=== PATIENT | male | born 1950 | race Caucasian/White ===

== ENCOUNTER → 2017-04-17 | Outpatient (CLI) | payer OTHER | END | disposition home or self-care (01) | LOC: C.LAB1850 09:40 | PROVIDERS: ATTEND Urology | DX: R97.20 Elevated prostate specific antigen [PSA] (principal) ==

== ENCOUNTER → 2017-12-15 | Outpatient (CLI) | payer OTHER | END | disposition home or self-care (01) | LOC: C.LAB1850 09:00 | PROVIDERS: ATTEND Physician Assistant | DX: R97.20 Elevated prostate specific antigen [PSA] (principal) ==

== ENCOUNTER 2025-09-03 15:12 | Observation (INO) ==
[2025-09-03 16:01] LABS: Hematocrit (blood only) 45.0 % (42.0-52.0); Hemoglobin 15.4 g/dl (14.0-18.0); Immature Granulocytes # (auto) 0.02 K/uL (0.01-0.20); Immature Granulocytes % (auto) 0.2 %; Mean Corpuscular Hemoglobin 31.2 pg (25.0-34.0); Mean Corpuscular Volume 91.1 fL (80.0-100.0); Platelet Count 141 K/uL (130-400); RDW Standard Deviation 44.8 fL (36.4-46.3); Red Blood Count 4.94 M/uL (4.70-6.10); White Blood Count 9.35 K/ul (4.8-10.8)
--- NOTE | 2025-09-03 16:14 | Electrocardiogram Report ---
Test Reason : Blood Pressure : */* mmHG Vent. Rate : 63 BPM Atrial Rate : * BPM P-R Int : * ms QRS Dur : 128 ms QT Int : 418 ms P-R-T Axes : * 29 7 degrees QTcB Int : 427 ms Wide QRS rhythm Right bundle branch block Abnormal ECG No previous ECGs available Confirmed by Bradly Holman ([id number]) on 09/03/2025 4:14:08 PM Referred By: Confirmed By: Bradly Holman
[2025-09-03 16:29] LABS: Alanine Aminotransferase 16.0 U/L (7-52); Albumin Globulin Ratio 1.6 (0.9-2); Albumin Level 4.1 gm/dl (3.4-5.0); Alkaline Phosphatase 64.0 U/L (34-104); Anion Gap 8.0 (3-11); Bilirubin,Total 0.8 mg/dl (0.2-1.0); Blood Urea Nitrogen 35.0 mg/dl (6-23); Calcium 9.4 mg/dl (8.6-10.3); Carbon Dioxide 24.0 mmol/L (21-32); Chloride 106.0 mmol/L (98-107); Creatinine Clr Calc Pharmacy 38.1 ml/min; Globulin 2.5 gm/dl (2.5-4.0); Glucose 119.0 mg/dl (70-99(Fasting)); Potassium 4.4 mmol/L (3.5-5.1); Sodium 138.0 mmol/L (136-145); Total Protein 6.6 gm/dl (6.0-8.3)
[2025-09-03 16:33] LABS: INR 1.2 (0.9-1.1); Partial Thromboplastin Time 25 Seconds (21-31); Prothrombin Time 12.4 Seconds (9.0-12.0)
--- NOTE | 2025-09-03 16:42 | XRay Report ---
Chest radiograph, one view History: Chest pain Comparison: None Findings: Single AP view of the chest performed. No focal consolidation or pleural effusion. No pneumothorax. The cardiomediastinal silhouette is within normal limits. Normal pulmonary vascularity. No evidence for lymphadenopathy. No visualized bony or soft tissue abnormality. Impression: Normal chest radiograph Electronically signed by Harmeet Winn 09-03-2025 4:41 PM
[2025-09-03] MEDS: SODIUM CHLORIDE 0.9% 1,000 ML IV ONE (16:49)
--- NOTE | 2025-09-03 17:14 | Emergency Department Note ---
History of Present Illness General Chief complaint: Dizziness Stated complaint: LIGHT HEADED Time Seen by Provider: 09/03/25 16:30 History of Present Illness Provider complaint: Lightheaded Maximum Pain Intensity: 1 74-year-old male presents emergency department after feeling lightheaded. Patient reports at 11 AM he was at the [employer] club at [facility] when he began to feel very sweaty and lightheaded. Patient states he felt like he was going to pass out. Patient states he did not lose consciousness. Patient reports no headache. He reports no chest pain or difficulty breathing. Patient reports that he did not eat anything this morning for breakfast. 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 Patient reports he went back to his luncheon and ate and felt much better. Patient reports he called his PCP who advised him to come to the emergency department for evaluation for TIA. Home Medications Medication Instructions Recorded Confirmed Type brimonidine 0.2 %-timolol 0.5 % 1 drops ophthalmic (eye) BID 01/08/20 09/03/25 History eye drops (Combigan) OneTouch Ultra Blue Test Strip #100 ea 08/04/20 02/21/25 Rx (blood sugar diagnostic) tadalafil 5 mg tablet 5 mg PO DAILY 02/19/24 09/03/25 History atorvastatin 20 mg tablet 20 mg PO QPM #90 tabs 02/21/25 09/03/25 Rx blood-glucose sensor (FreeStyle #6 ea 06/11/25 Rx Pat 3 Plus Sensor device) multivitamin 1 tab PO DAILY 09/03/25 09/03/25 History Allergies Allergy/AdvReac Type Severity Reaction Status Date / Time No Known Allergies Allergy Verified 09/03/25 19:29 Past Med/Surg History Problem List (Updated 09/03/25 @ 20:47 by William Su MD) TIA (transient ischemic attack) (Acute) ADDISON (acute kidney injury) (Acute) Dyslipidemia Diabetes type 1, controlled Elevated prostate specific antigen (PSA) (Acute) Pulmonary nodule Cough Abnormal CT scan of lung Social History Smoking Status: Never smoker Hx Substance Use: No Preferred Language: French marital status: Feels Safe at Home: Yes Physical Exam Vital Signs Vital Signs - 24 hr 09/03/25 15:17 09/03/25 16:59 09/03/25 17:20 Temperature 36.5 C Temperature Source Temporal Artery Scan Pulse Rate 66 63 61 Pulse Rate [Apical] Respiratory Rate 18 20 Respiratory Effort / Characteristics Non-Labored Spontaneous Respiratory Depth Normal Respiratory Pattern Regular Blood Pressure 134/81 Blood Pressure [Left Arm] Blood Pressure Mean 98 Blood Pressure Mean [Left Arm] Blood Pressure Position [Left Arm] Pulse Oximetry 97 99 Oxygen Delivery Method Room Air Room Air Sepsis Recent Fever Within 48 Hours No Sepsis New/Unexplained Change in Mental Status N/A Sepsis Action Taken by Nursing No Action Required 09/03/25 17:20 09/03/25 18:08 09/03/25 20:30 Temperature Temperature Source Pulse Rate Pulse Rate [Apical] 61 62 60 Respiratory Rate 20 20 16 Respiratory Effort / Characteristics Non-Labored Spontaneous Non-Labored Spontaneous Non-Labored Spontaneous Respiratory Depth Normal Normal Normal Respiratory Pattern Regular Regular Regular Blood Pressure Blood Pressure [Left Arm] 133/77 140/86 140/76 Blood Pressure Mean Blood Pressure Mean [Left Arm] 95 104 97 Blood Pressure Position [Left Arm] Semi-fowlers Pulse Oximetry 99 97 100 Oxygen Delivery Method Room Air Room Air Room Air Sepsis Recent Fever Within 48 Hours Sepsis New/Unexplained Change in Mental Status Sepsis Action Taken by Nursing Physical Exam GENERAL: He is oriented to person, place, and time. He appears well-developed and well-nourished. He does not appear distressed. HENT: Exam performed. - Head: Normocephalic and atraumatic. - Right Ear: External ear normal. No mastoid erythema - Left Ear: External ear normal. No mastoid erythema - Mouth/Throat: The oropharynx is clear and moist. No trismus in the jaw. No dental abscesses or uvula swelling. No oropharyngeal exudate or tonsillar abscesses. EYES: Conjunctivae and EOM are normal. Pupils are equal, round, and reactive to light. Right eye exhibits no discharge. Left eye exhibits no discharge. No scleral icterus. NECK: Normal range of motion. Neck supple. No JVD present. No rigidity. No tracheal deviation and normal range of motion present. CV: Normal rate, regular rhythm, normal heart sounds and intact distal pulses. There is no peripheral edema. Palpable radial pulses bue. PULM/CHEST: Effort normal and breath sounds normal. No respiratory distress. No stridor. He has no wheezes. He has no rales. ABD: The abdomen is soft. He has no distension. No mass is present. There is no tenderness. There is no rebound, no guarding. MUSC/SKEL: Normal range of motion. There is no peripheral edema, tenderness or deformity. LYMPH: No cervical adenopathy. NEURO: He is alert and oriented to person, place, and time. He has normal strength. No cranial nerve deficit or sensory deficit. Coordination and gait normal. GCS eye subscore is 4. GCS verbal subscore is 5. GCS motor subscore is 6. Cerebellar tests wnl. NIHSS: 0 SKIN: Skin is warm and dry. He is not diaphoretic. PSYCH: He has a normal mood and affect. Behavior is normal. Judgment and thought content normal. Course Course 163: The patient was evaluated in room B4. A complete history and physical exam was performed Cardiac monitoring: An order was placed for continuous cardiac monitoring. The monitor shows a rate of 60 with sinus arrhythmia interpreted by me Patient was seen during a time of extreme volume and extreme acuity in the emergency department. Nursing triage protocols were initiated and labs were drawn by protocol in the triage area. Labs showed creatinine 1.7. Baseline creatinine is around 1.1. Will obtain CT of the head without contrast and CT of the abdomen pelvis without contrast. 1915: Vital signs stable. On reassessment patient has no focal neurologic deficits no meningeal signs NIHSS: 0. Initially was thought to the patient's symptoms could be due to hypoglycemia since he had not eaten all day today however the patient reported that EMS stated that his blood sugar was not low when they saw him. Patient has a continuous glucose monitor on his phone which showed the patient had no episodes of hypoglycemia. Other differential could be TIA. Had a long discussion with the patient about this and after long discussion we jointly decided be more prudent to admit the patient for ADDISON and possible TIA for neurology evaluation in the morning. Patient be admitted to the [facility] team. Administered Medications Sodium Chloride (Nss) 1,000 mls @ 125 mls/hr IV .Q8H BRIAN Stop: 09/06/25 19:14 Last Admin: 09/03/25 19:29 Dose: 125 mls/hr Documented By: EMB Discontinued Medications Aspirin (Aspirin 81 Mg Chew) 324 mg PO NOW STA Stop: 09/03/25 19:16 Last Admin: 09/03/25 19:29 Dose: 324 mg Documented By: JOÃO Sodium Chloride (Nss) 1,000 mls @ 999 mls/hr IV .Q1H1M ONE Stop: 09/03/25 17:30 Last Infusion: 09/03/25 18:00 Dose: Infused Documented By: ludy Admin: 09/03/25 16:49 Dose: 999 mls/hr Documented By: ludy Medical Decision Making Laboratory Data Attestation: I reviewed the patient's lab results. 09/03/25 15:42 09/03/25 15:42 Lab Results 09/03/25 09/03/25 Range/Units 15:42 Unknown WBC 9.35 (4.8-10.8) K/ul RBC 4.94 (4.70-6.10) M/uL Hgb 15.4 (14.0-18.0) g/dl Hct 45.0 (42.0-52.0) % MCV 91.1 (80.0-100.0) fL MCH 31.2 (25.0-34.0) pg MCHC 34.2 (32.0-36.0) g/dL RDW Std Deviation 44.8 (36.4-46.3) fL RDW Coeff of Teja 13.3 (11.5-14.5) % Plt Count 141 (130-400) K/uL MPV 12.2 (9.4-12.4) fL Immature Gran % (Auto) 0.2 % Neut % (Auto) 69.2 % Lymph % (Auto) 21.0 % [place] % (Auto) 8.8 % Eos % (Auto) 0.5 % Baso % (Auto) 0.3 % Neut # (Auto) 6.47 (1.40-6.50) K/uL Lymph # (Auto) 1.96 (1.20-3.40) K/uL [place]wood # (Auto) 0.82 H (0.11-0.59) K/uL Eos # (Auto) 0.05 (0.00-0.50) K/uL Baso # (Auto) 0.03 (0.00-0.20) K/uL Immature Gran # (Auto) 0.02 (0.01-0.20) K/uL PT 12.4 H (9.0-12.0) Seconds INR 1.2 H (0.9-1.1) APTT 25 (21-31) Seconds PTT Ratio 0.9 Sodium 138 (136-145) mmol/L Potassium 4.4 (3.5-5.1) mmol/L Chloride 106 (98-107) mmol/L Carbon Dioxide 24 (21-32) mmol/L Anion Gap 8 (3-11) BUN 35 H (6-23) mg/dl Creatinine 1.70 H (0.6-1.4) mg/dl Est Cr Clr Drug Dosing 38.1 ml/min eGFR 41.78 BUN/Creatinine Ratio 20.6 H (10-20) Glucose 119 H (70-99(Fasting)) mg/dl Calcium 9.4 (8.6-10.3) mg/dl Magnesium 2.0 (1.7-2.4) mg/dl Total Bilirubin 0.8 (0.2-1.0) mg/dl AST 21 (13-39) U/L ALT 16 (7-52) U/L Alkaline Phosphatase 64 (34-104) U/L Troponin I High Sens 13.5 (0-20) pg/ml Total Protein 6.6 (6.0-8.3) gm/dl Albumin 4.1 (3.4-5.0) gm/dl Globulin 2.5 (2.5-4.0) gm/dl Albumin/Globulin Ratio 1.6 (0.9-2) Urine Color Yellow Urine Appearance Clear (Clear) Urine pH 5.0 (4.5-7.5) Ur Specific [employer] 1.023 (1.000-1.030) Urine Protein Negative (Negative) Urine Glucose (UA) Negative (Negative) Urine Ketones Trace H (Negative) Urine Blood Negative (Negative) Urine Nitrite Negative (Negative) Urine Bilirubin Negative (Negative) Urine Urobilinogen Negative (Negative) Ur Leukocyte Esterase Negative (Negative) Urine Comment Imaging Data Radiologist's Impression: Chest X-Ray 09/03/25 15:24 Chest radiograph, one view History: Chest pain Comparison: None Findings: Single AP view of the chest performed. No focal consolidation or pleural effusion. No pneumothorax. The cardiomediastinal silhouette is within normal limits. Normal pulmonary vascularity. No evidence for lymphadenopathy. No visualized bony or soft tissue abnormality. Impression: Normal chest radiograph Electronically signed by Harmeet Winn 09-03-2025 4:[address] 09/03/25 16:26 Technique: Axial computed tomography images were obtained of the brain without intravenous contrast. Findings: There is diffuse cerebral atrophy, within expected limits for the patient's age. Areas of decreased attenuation are seen within the periventricular white matter, likely representing chronic small vessel ischemic disease. There is no definite sign of acute or old infarction. No intracranial hemorrhage is evident. No definite mass lesion is seen on this noncontrast examination. There is no midline shift or other form of herniation. No hydrocephalus is seen. No fracture is identified. The orbits and the visualized paranasal sinuses appear unremarkable. The mastoid air cells appear clear. Impression: 1. Cerebral atrophy and chronic small vessel ischemic disease 2. Otherwise unremarkable noncontrast CT of the brain Electronically signed by Gabino Miles 09-03-2025 5:21 PM Abdomen/Pelvis CT 09/03/25 16:30 EXAMINATION: CT of the abdomen and pelvis performed without contrast TECHNIQUE: Helical CT images from the lung bases through the symphysis pubis were obtained without contrast. Coronal and sagittal reformatted images were generated at a workstation for further assessment. Dose reduction techniques were achieved by using automatic exposure control and/or adjustment of mA and/or kV according to patient size and/or use of iterative reconstruction technique. COMPARISON: None HISTORY: Abdominal pain FINDINGS: Lower chest: No consolidation. No pleural effusion or pneumothorax. Liver: No suspicious liver lesions. Gallbladder: No gallstones. No evidence of acute cholecystitis. Spleen: Normal size. Pancreas: No suspicious pancreatic lesions. The pancreatic duct is not dilated. Adrenal glands: No adrenal nodules. Kidneys: No hydronephrosis or obstructing renal stones. Bladder / Pelvic organs: Unremarkable. Bowel: No bowel obstruction. No abnormal bowel wall thickening. The appendix is unremarkable. Lymph nodes: No retroperitoneal, mesenteric, or pelvic lymphadenopathy. Peritoneum / Retroperitoneum: No free fluid or air within the abdomen. Vessels: No infrarenal aortic aneurysm. Bones and soft tissues: No suspicious lesion in the bones. IMPRESSION: No acute finding in the abdomen or pelvis Electronically signed by Harmeet Winn 09-03-2025 6:38 PM ECG Data Attestation: I personally reviewed and interpreted this ECG as follows: Additional Comments: EKG #1 at 1535: Sinus arrhythmia with a rate of 63. QRS [address] elevation or ST depression right bundle branch block present. EKG #2 at 1644: Sinus arrhythmia with a rate of 62. SC 136 QRS [address] elevation or ST depression. Right bundle branch block present. Multiple PVCs present. [facility] Narrative 1630: The patient was evaluated in room B4. A complete history and physical exam was performed Cardiac monitoring: An order was placed for continuous cardiac monitoring. The monitor shows a rate of 60 with sinus arrhythmia interpreted by me Patient was seen during a time of extreme volume and extreme acuity in the emergency department. Nursing triage protocols were initiated and labs were drawn by protocol in the triage area. Labs showed creatinine 1.7. Baseline creatinine is around 1.1. Will obtain CT of the head without contrast and CT of the abdomen pelvis without contrast. 191: Vital signs stable. On reassessment patient has no focal neurologic deficits no meningeal signs NIHSS: 0. Initially was thought to the patient's symptoms could be due to hypoglycemia since he had not eaten all day today however the patient reported that EMS stated that his blood sugar was not low when they saw him. Patient has a continuous glucose monitor on his phone which showed the patient had no episodes of hypoglycemia. Other differential could be TIA. Had a long discussion with the patient about this and after long discussion we jointly decided be more prudent to admit the patient for ADDISON and possible TIA for neurology evaluation in the morning. Patient be admitted to the [facility] team. Impression & Plan ADDISON (acute kidney injury), TIA (transient ischemic attack) Discharge Plan Visit Data Chief Complaint: Dizziness Stated Complaint: LIGHT HEADED ED Provider: William Su Discharge Problem: ADDISON (acute kidney injury), TIA (transient ischemic attack) Patient Disposition: Admitted As Inpatient Condition: Fair Forms Stand Alone Forms: My [facility] Prescriptions Prescriptions: No Action (DME) blood sugar diagnostic [OneTouch Ultra Blue Test Strip] Strip See Rx Instructions .ROUTE .MEDSUPPLY Qty: 100 3RF Rx Instructions: test blood sugars once daily (DME) FreeStyle Pat 3 Plus Sensor Device See Rx Instructions .Route Qty: 6 3RF Rx Instructions: Please change 15 days Combigan 0.2-0.5 % drops 1 drops OP BID tadalafil 5 mg tablet 5 mg PO DAILY atorvastatin 20 mg tablet 20 mg PO QPM Qty: 90 3RF multivitamin Tablet 1 tab PO DAILY Referrals Referrals: Ashley Haddad [Primary Care Provider] -
[2025-09-03 17:16] LABS: Appearance Urine Clear (Clear); Glucose Urine UA Negative (Negative)
--- NOTE | 2025-09-03 17:22 | CT Scan Report ---
Technique: Axial computed tomography images were obtained of the brain without intravenous contrast. Findings: There is diffuse cerebral atrophy, within expected limits for the patient's age. Areas of decreased attenuation are seen within the periventricular white matter, likely representing chronic small vessel ischemic disease. There is no definite sign of acute or old infarction. No intracranial hemorrhage is evident. No definite mass lesion is seen on this noncontrast examination. There is no midline shift or other form of herniation. No hydrocephalus is seen. No fracture is identified. The orbits and the visualized paranasal sinuses appear unremarkable. The mastoid air cells appear clear. Impression: 1. Cerebral atrophy and chronic small vessel ischemic disease 2. Otherwise unremarkable noncontrast CT of the brain Electronically signed by Gabino Miles 09-03-2025 5:21 PM
[2025-09-03 17:23] LABS: Magnesium 2.0 mg/dl (1.7-2.4)
--- NOTE | 2025-09-03 18:38 | CT Scan Report ---
EXAMINATION: CT of the abdomen and pelvis performed without contrast TECHNIQUE: Helical CT images from the lung bases through the symphysis pubis were obtained without contrast. Coronal and sagittal reformatted images were generated at a workstation for further assessment. Dose reduction techniques were achieved by using automatic exposure control and/or adjustment of mA and/or kV according to patient size and/or use of iterative reconstruction technique. COMPARISON: None HISTORY: Abdominal pain FINDINGS: Lower chest: No consolidation. No pleural effusion or pneumothorax. Liver: No suspicious liver lesions. Gallbladder: No gallstones. No evidence of acute cholecystitis. Spleen: Normal size. Pancreas: No suspicious pancreatic lesions. The pancreatic duct is not dilated. Adrenal glands: No adrenal nodules. Kidneys: No hydronephrosis or obstructing renal stones. Bladder / Pelvic organs: Unremarkable. Bowel: No bowel obstruction. No abnormal bowel wall thickening. The appendix is unremarkable. Lymph nodes: No retroperitoneal, mesenteric, or pelvic lymphadenopathy. Peritoneum / Retroperitoneum: No free fluid or air within the abdomen. Vessels: No infrarenal aortic aneurysm. Bones and soft tissues: No suspicious lesion in the bones. IMPRESSION: No acute finding in the abdomen or pelvis Electronically signed by Harmeet Winn 09-03-2025 6:38 PM
[2025-09-03] MEDS: ASPIRIN 81 MG CHEW PO STA (19:29)
[2025-09-03] MEDS: SODIUM CHLORIDE 0.9% 1,000 ML IV SCH (19:29)
--- NOTE | 2025-09-03 21:06 | History & Physical Report ---
Date of Service September 03, 2025 Assessment & Plan (1) Near syncope: (2) TIA (transient ischemic attack): (3) ADDISON (acute kidney injury): (4) PVCs (premature ventricular contractions): Plan The patient is a 74-year-old male with past medical history including dyslipidemia, diabetes mellitus, elevated PSA, pulmonary nodule, glaucoma. Patient presents to the emergency department reporting that while he was at the [facility] [employer] earlier in the day today, he had an episode of feeling lightheaded dizzy and significant sweating after he had to change clothing. He reports that he did not eat breakfast this morning. He did eat at lunchtime, and reports that he felt better. He denies any headaches, focal weakness in arms or legs, chest pain or shortness of breath. He has no previous episodes of the symptoms. His blood sugar was checked while he was there repo rtedly was 220 and 140. When he got home, he called his PCPs office, and they told him that because the symptoms lasted 30 to 40 minutes, he should come to the emergency department to be evaluated for TIA. Workup in the emergency department included, chest x-ray, CT scan of head without contrast which showed mild chronic small vessel disease, CT scan of abdomen pelvis was negative. EKG showed right bundle branch block with wide QRS rhythm. Heart monitor in the ED during my evaluation showed frequent asymptomatic PVCs. Significant laboratory maladies included a creatinine of 1.70. From the ED patient received the following: Aspirin 324 mg, normal saline 1 L bolus, followed by normal saline at 125 mL/h. Patient was then referred for evaluation for admission to [facility] service. Near syncope- The patient will be admitted to telemetry for serial cardiac enzymes, serial EKG's, cardiac rhythm monitoring and a 2-D echocardiogram with Dopplers. Differential including but not limited to: Cardiac rhythm abnormality, TIA/CVA, metabolic disturbance such as with glucose levels. CT scan of head without contrast showed mild chronic small vessel disease CT scan abdomen pelvis negative Carotid Dopplers negative MRI brain without contrast negative MR angiography of brain without contrast negative Patient did not have any focal deficits, had primarily generalized weakness in the legs in particular, that resolved spontaneously, in particular improved by eating. Contributing factors include were not limited to: Probable hypoglycemia, as he did not eat breakfast before the symptoms: Dehydration associated acute kidney injury, adverse effect of tadalafil, adverse effect of brimidone-timolol ophthalmic drops, cardiac source with frequent PVCs noted on monitor, and EKG sh owing right bundle branch block and wide QRS rhythm. If the patient has an uneventful evening, he should at some time prior to discharge get a stress echocardiogram, in particular looking for some type of abnormal heart rhythm as a cause of his symptoms. Acute kidney injury- Creatinine 1.70, with base 1.18. Received normal saline 1 L fluid bolus from the ED Continue IV fluids with NSS at 125 mL/h x 1 L Repeat BMP and magnesium level in the a.m. Diabetes mellitus- There may be an element of hypoglycemia, as patient had not eaten breakfast yet prior to the development of symptoms. Hyperglycemia after symptoms may have been a reactive effect of insulin release to deal with hypoglycemia from not eating. Patient reports that his symptoms resolved after eating lunch. Glaucoma- Continue brimonidine-timolol eyedrops for now. If patient developed significant bradycardia, may recommend to change eyedrops away from beta-shahid timolol. Hyperlipidemia- Continue atorvastatin Check a fasting lipid panel History of Present Illness Chief Complaint: Patient presents to the emergency department reporting that while he was at the [facility] [employer] earlier in the day today, he had an episode of feeling lightheaded dizzy and significant sweating after he had to change clothing. He reports that he did not eat breakfast this morning. He did eat at lunchtime, and reports that he felt better. He denies any headaches, focal weakness in arms or legs, chest pain or shortness of breath. He has no previous episodes of the symptoms. His blood sugar was checked while he was there reportedly was 220 and 140. When he got home, he called his PCPs office, and they told him that because the symptoms lasted 30 to 40 minutes, he should come to the emergency department to be evaluated for TIA. Primary Care Provider: Ashley Haddad The patient is a 74-year-old male with past medical history including dyslipidemia, diabetes mellitus, elevated PSA, pulmonary nodule, glaucoma. Patient presents to the emergency department reporting that while he was at the [facility] [employer] earlier in the day today, he had an episode of feeling lightheaded dizzy and significant sweating after he had to change clothing. He reports that he did not eat breakfast this morning. He did eat at lunchtime, and reports that he felt better. He denies any headaches, focal weakness in arms or legs, chest pain or shortness of breath. He has no previous episodes of the symptoms. His blood sugar was checked while he was there reportedly was 220 and 140. When he got home, he called his PCPs office, and they told him that because the symptoms lasted 30 to 40 minutes, he should come to the emergency department to be evaluated for TIA. Workup in the emergency department included, chest x-ray, CT scan of head without contrast which showed mild chronic small vessel disease, CT scan of abdomen pelvis was negative. EKG showed right bundle branch block with wide QRS rhythm. Heart monitor in the ED during my evaluation showed frequent asymptomatic PVCs. Significant laboratory maladies included a creatinine of 1.70. From the ED patient received the following: Aspirin 324 mg, normal saline 1 L bolus, followed by normal saline at 125 mL/h. Patient was then referred for evaluation for admission to [facility] service. Allergies Allergy/AdvReac Type Severity Reaction Status Date / Time No Known Allergies Allergy Verified 09/03/25 19:29 Home Medications Medication Instructions Recorded Confirmed Type brimonidine 0.2 %-timolol 0.5 % 1 drops ophthalmic (eye) BID 01/08/20 09/03/25 History eye drops (Combigan) OneTouch Ultra Blue Test Strip #100 ea 08/04/20 02/21/25 Rx (blood sugar diagnostic) tadalafil 5 mg tablet 5 mg PO DAILY 02/19/24 09/03/25 History atorvastatin 20 mg tablet 20 mg PO QPM #90 tabs 02/21/25 09/03/25 Rx blood-glucose sensor (FreeStyle #6 ea 06/11/25 Rx Pat 3 Plus Sensor device) multivitamin 1 tab PO DAILY 09/03/25 09/03/25 History Past Med/Surg History Problem List (Updated 09/04/25 @ 03:41 by Jorge Myles MD) Right bundle branch block PVCs (premature ventricular contractions) Near syncope TIA (transient ischemic attack) (Acute) ADDISON (acute kidney injury) (Acute) Dyslipidemia Elevated prostate specific antigen (PSA) (Acute) Pulmonary nodule Cough Abnormal CT scan of lung Medical History (Updated 09/04/25 @ 03:41 by Jogre Myles MD) Diabetes mellitus Social History Smoking Status: Never smoker Hx Alcohol Use: Yes Alcohol type: beer and wine Hx Substance Use: No Preferred Language: Irish Communication Ability: Effective 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 Beliefs That Will Affect Care: None marital status: Current Living Situation: Spouse Other Information That Helps Us Care for You: No Feels Safe at Home: Yes Safety Concerns: Feels Safe At This Time Assistive Devices: Glasses Review of Systems Review of Systems: The patient denies chest pain, palpitations, shortness of breath, dyspnea on exertion, cough, lower extremity swelling, sore throat, fevers, chills, sweats, weight change, fatigue, nausea, vomiting, diarrhea , constipation, abdominal pain, pelvic pain, blood in urine or stool, dysuria, urinary frequency or urgency, memory loss, loss of consciousness, rash, abnormal bruising or bleeding, focal weakness, numbness or tingling in arms or legs, generalized arthralgias or myalgias, back or neck pain, or night sweats. The review of systems is otherwise negative other than for that already noted above, and at least 10 systems have been reviewed. Physical Exam Physical Exam: The patient is awake, alert and oriented 3, well developed and well nourished, normocephalic and atraumatic, lying in bed and in no acute distress. HEENT--PERRL, EOMI, mucous membranes and oropharynx mildly dry. Neck--supple. No JVD. No bruits. Thyroid normal, trachea midline, no adenopathy. Heart--normal S1 and S2, occasional PVCs. No murmurs, rubs or gallops. Lungs--clear bilaterally, no respiratory distress, no accessory muscle use. Abdomen--normal bowel sounds and soft. Nontender. Nondistended, no hernias or masses, no organomegaly. Extremities--no cyanosis or clubbing. No edema. There are good distal pulses b/l. Dermatologic--normal skin turgor, normal color, no abnormal lymph nodes, no rash. Neurologic--cranial nerves II through XII grossly intact. Rheumatologic--normal range of motion. Psychiatric--normal affect. Results & Data Results & Data Vital Signs (Past 12 Hours) Vital Signs Temp Pulse Pulse Resp BP BP Pulse Ox 09/03/25 20:54 65 09/03/25 20:30 60 16 140/76 100 09/03/25 18:08 62 20 140/86 97 09/03/25 17:20 61 20 133/77 99 09/03/25 17:20 61 20 99 09/03/25 16:59 63 09/03/25 15:17 36.5 C 66 18 134/81 97 O2 Del Method 09/03/25 20:54 09/03/25 20:30 Room Air 09/03/25 18:08 Room Air 09/03/25 17:20 Room Air 09/03/25 17:20 Room Air 09/03/25 16:59 09/03/25 15:17 Room Air Laboratory Results Laboratory Results WBC 9.35 K/ul (4.8-10.8) 09/03/25 15:42 RBC 4.94 M/uL (4.70-6.10) 09/03/25 15:42 Hgb 15.4 g/dl (14.0-18.0) 09/03/25 15:42 Hct 45.0 % (42.0-52.0) 09/03/25 15:42 MCV 91.1 fL (80.0-100.0) 09/03/25 15:42 MCH 31.2 pg (25.0-34.0) 09/03/25 15:42 MCHC 34.2 g/dL (32.0-36.0) 09/03/25 15:42 RDW Std Deviation 44.8 fL (36.4-46.3) 09/03/25 15:42 RDW Coeff of Teja 13.3 % (11.5-14.5) 09/03/25 15:42 Plt Count 141 K/uL (130-400) 09/03/25 15:42 MPV 12.2 fL (9.4-12.4) 09/03/25 15:42 Immature Gran % (Auto) 0.2 % 09/03/25 15:42 Neut % (Auto) 69.2 % 09/03/25 15:42 Lymph % (Auto) 21.0 % 09/03/25 15:42 [place] % (Auto) 8.8 % 09/03/25 15:42 Eos % (Auto) 0.5 % 09/03/25 15:42 Baso % (Auto) 0.3 % 09/03/25 15:42 Neut # (Auto) 6.47 K/uL (1.40-6.50) 09/03/25 15:42 Lymph # (Auto) 1.96 K/uL (1.20-3.40) 09/03/25 15:42 [place] # (Auto) 0.82 K/uL (0.11-0.59) H 09/03/25 15:42 Eos # (Auto) 0.05 K/uL (0.00-0.50) 09/03/25 15:42 Baso # (Auto) 0.03 K/uL (0.00-0.20) 09/03/25 15:42 Immature Gran # (Auto) 0.02 K/uL (0.01-0.20) 09/03/25 15:42 PT 12.4 Seconds (9.0-12.0) H 09/03/25 15:42 INR 1.2 (0.9-1.1) H 09/03/25 15:42 APTT 25 Seconds (21-31) 09/03/25 15:42 PTT Ratio 0.9 09/03/25 15:42 Sodium 138 mmol/L (136-145) 09/03/25 15:42 Potassium 4.4 mmol/L (3.5-5.1) 09/03/25 15:42 Chloride 106 mmol/L (98-107) 09/03/25 15:42 Carbon Dioxide 24 mmol/L (21-32) 09/03/25 15:42 Anion Gap 8 (3-11) 09/03/25 15:42 BUN 35 mg/dl (6-23) H 09/03/25 15:42 Creatinine 1.70 mg/dl (0.6-1.4) H 09/03/25 15:42 Est Cr Clr Drug Dosing 38.1 ml/min 09/03/25 15:42 eGFR 41.78 09/03/25 15:42 BUN/Creatinine Ratio 20.6 (10-20) H 09/03/25 15:42 Glucose 119 mg/dl (70-99(Fasting)) H 09/03/25 15:42 POC Glucose 91 mg/dl (70-99) 09/03/25 23:06 Calcium 9.4 mg/dl (8.6-10.3) 09/03/25 15:42 Magnesium 2.0 mg/dl (1.7-2.4) 09/03/25 15:42 Total Bilirubin 0.8 mg/dl (0.2-1.0) 09/03/25 15:42 AST 21 U/L (13-39) 09/03/25 15:42 ALT 16 U/L (7-52) 09/03/25 15:42 Alkaline Phosphatase 64 U/L (34-104) 09/03/25 15:42 Troponin I High Sens 13.5 pg/ml (0-20) 09/03/25 15:42 Total Protein 6.6 gm/dl (6.0-8.3) 09/03/25 15:42 Albumin 4.1 gm/dl (3.4-5.0) 09/03/25 15:42 Globulin 2.5 gm/dl (2.5-4.0) 09/03/25 15:42 Albumin/Globulin Ratio 1.6 (0.9-2) 09/03/25 15:42 Urine Color Yellow 09/03/25 Unknown Urine Appearance Clear (Clear) 09/03/25 Unknown Urine pH 5.0 (4.5-7.5) 09/03/25 Unknown Ur Specific [place] 1.023 (1.000-1.030) 09/03/25 Unknown Urine Protein Negative (Negative) 09/03/25 Unknown Urine Glucose (UA) Negative (Negative) 09/03/25 Unknown Urine Ketones Trace (Negative) H 09/03/25 Unknown Urine Blood Negative (Negative) 09/03/25 Unknown Urine Nitrite Negative (Negative) 09/03/25 Unknown Urine Bilirubin Negative (Negative) 09/03/25 Unknown Urine Urobilinogen Negative (Negative) 09/03/25 Unknown Ur Leukocyte Esterase Negative (Negative) 09/03/25 Unknown Urine Comment 09/03/25 Unknown Impressions Chest X-Ray 09/03/25 15:24 Chest radiograph, one view History: Chest pain Comparison: None Findings: Single AP view of the chest performed. No focal consolidation or pleural effusion. No pneumothorax. The cardiomediastinal silhouette is within normal limits. Normal pulmonary vascularity. No evidence for lymphadenopathy. No visualized bony or soft tissue abnormality. Impression: Normal chest radiograph Electronically signed by Harmeet Winn 09-03-2025 4:[address] 09/03/25 16:26 Technique: Axial computed tomography images were obtained of the brain without intravenous contrast. Findings: There is diffuse cerebral atrophy, within expected limits for the patient's age. Areas of decreased attenuation are seen within the periventricular white matter, likely representing chronic small vessel ischemic disease. There is no definite sign of acute or old infarction. No intracranial hemorrhage is evident. No definite mass lesion is seen on this noncontrast examination. There is no midline shift or other form of herniation. No hydrocephalus is seen. No fracture is identified. The orbits and the visualized paranasal sinuses appear unremarkable. The mastoid air cells appear clear. Impression: 1. Cerebral atrophy and chronic small vessel ischemic disease 2. Otherwise unremarkable noncontrast CT of the brain Electronically signed by Gabino Miles 09-03-2025 5:21 PM Abdomen/Pelvis CT 09/03/25 16:30 EXAMINATION: CT of the abdomen and pelvis performed without contrast TECHNIQUE: Helical CT images from the lung bases through the symphysis pubis were obtained without contrast. Coronal and sagittal reformatted images were generated at a workstation for further assessment. Dose reduction techniques were achieved by using automatic exposure control and/or adjustment of mA and/or kV according to patient size and/or use of iterative reconstruction technique. COMPARISON: None HISTORY: Abdominal pain FINDINGS: Lower chest: No consolidation. No pleural effusion or pneumothorax. Liver: No suspicious liver lesions. Gallbladder: No gallstones. No evidence of acute cholecystitis. Spleen: Normal size. Pancreas: No suspicious pancreatic lesions. The pancreatic duct is not dilated. Adrenal glands: No adrenal nodules. Kidneys: No hydronephrosis or obstructing renal stones. Bladder / Pelvic organs: Unremarkable. Bowel: No bowel obstruction. No abnormal bowel wall thickening. The appendix is unremarkable. Lymph nodes: No retroperitoneal, mesenteric, or pelvic lymphadenopathy. Peritoneum / Retroperitoneum: No free fluid or air within the abdomen. Vessels: No infrarenal aortic aneurysm. Bones and soft tissues: No suspicious lesion in the bones. IMPRESSION: No acute finding in the abdomen or pelvis Electronically signed by Harmeet Winn 09-03-2025 6:38 PM Brain MRI 09/03/25 20:38 Exam(s): MRI HEAD Without Contrast EXAM: MR Head Without Intravenous Contrast CLINICAL HISTORY: Reason for exam: TIA. OTHER: Other Notes: dizzy episode today that last 30-40minutes other symptoms no head trauma dizziness has since resolved TECHNIQUE: Magnetic resonance images of the head/brain without intravenous contrast in multiple planes. COMPARISON: Prior head CT from September 03, 2025. FINDINGS: Brain: Mild nonspecific white matter changes. The flow voids at the base the brain are intact. No mass. No hemorrhage. No acute infarct. Ventricles: Unremarkable. No ventriculomegaly. Bones/joints: Unremarkable. No acute fracture. Sinuses: Chronic ethmoid sinusitis. No acute sinusitis. Mastoid air cells: There is a small amount of fluid in the right mastoid air cells. No mastoid effusion. Orbits: Unremarkable as visualized. IMPRESSION: No evidence of acute intracranial pathology. Electronically signed by: Brooklynn Montgomery MD 09/03/25 22:42 PM Carotid Doppler Study 09/03/25 20:38 Exam(s): US CAROTID EXAM: US Duplex Bilateral Extracranial Arteries CLINICAL HISTORY: Reason for exam: TIA, ADDISON. OTHER: Other Notes: Near syncope. RT CCA 71/19, RT ICA 94/31, RT ECA 98, RT VERT 32 antegrade. LT CCA 83/19, LT ICA 95/22, LT ECA 144, LT VERT 53 antegrade. TECHNIQUE: Real-time duplex ultrasound scan of the extracranial arteries integrating B-mode two-dimensional vascular structure, Doppler spectral analysis and color flow Doppler imaging. COMPARISON: No relevant prior studies available. FINDINGS: Right common carotid artery: Unremarkable. No occlusion or significant stenosis on color flow and spectral Doppler imaging. Right internal carotid artery: Unremarkable. No occlusion or significant stenosis on color flow and spectral Doppler imaging. Right external carotid artery: Unremarkable. No occlusion or significant stenosis on color flow and spectral Doppler imaging. Right vertebral artery: Unremarkable. Antegrade flow. Right ICA/CCA ratio: Unremarkable. Within normal limits. Left common carotid artery: Unremarkable. No occlusion or significant stenosis on color flow and spectral Doppler imaging. Left internal carotid artery: Unremarkable. No occlusion or significant stenosis on color flow and spectral Doppler imaging. Left external carotid artery: Unremarkable. No occlusion or significant stenosis on color flow and spectral Doppler imaging. Left vertebral artery: Unremarkable. Antegrade flow. Left ICA/CCA ratio: Unremarkable. Within normal limits. Lymph nodes: Unremarkable. No lymphadenopathy. CAROTID STENOSIS REFERENCE USING IAC CRITERIA: Mild - <50% stenosis. ICA PSV is less than 180 cm/s and plaque or intimal thickening is visible. Moderate - 50-69% stenosis. ICA PSV is 180 to 230 cm/s and plaque is visible. Severe - 70-94% stenosis. ICA PSV is more than 230 cm/s and visible plaque with lumen narrowing is seen. Near occlusion - 95-99% stenosis. ICA PSV is variable and significant plaque with luminal narrowing is seen. Occluded - 100% stenosis. No flow identified. IMPRESSION: No evidence of hemodynamically significant stenosis. Antegrade vertebral artery blood flow. If there is continued clinical concern, a CT angiogram of the neck may be of benefit for further evaluation. Electronically signed by: Brooklynn Montgomery MD 09/03/25 23:53 PM Head MRA 09/03/25 20:38 Exam(s): MRA HEAD Without Contrast EXAM: MR Angiography Head Without Intravenous Contrast CLINICAL HISTORY: Reason for exam: TIA. OTHER: Other Notes: dizzy episode today that last 30-40minutes other symptoms no head trauma dizziness has since resolved TECHNIQUE: Magnetic resonance angiography images of the head without intravenous contrast. COMPARISON: No relevant prior studies available. FINDINGS: Right internal carotid artery: No acute findings. Intracranial segment is patent with no significant stenosis. No aneurysm. Right anterior cerebral artery: Unremarkable. No occlusion or significant stenosis. No aneurysm. Right middle cerebral artery: Unremarkable. No occlusion or significant stenosis. No aneurysm. Right posterior cerebral artery: Unremarkable. No occlusion or significant stenosis. No aneurysm. Right vertebral artery: Unremarkable as visualized. Left internal carotid artery: No acute findings. Intracranial segment is patent with no significant stenosis. No aneurysm. Left anterior cerebral artery: Unremarkable. No occlusion or significant stenosis. No aneurysm. Left middle cerebral artery: Unremarkable. No occlusion or significant stenosis. No aneurysm. Left posterior cerebral artery: Unremarkable. No occlusion or significant stenosis. No aneurysm. Left vertebral artery: Unremarkable as visualized. Basilar artery: Unremarkable. No occlusion or significant stenosis. No aneurysm. IMPRESSION: Negative MRA of the brain. Electronically signed by: Brooklynn Montgomery MD 09/03/25 22:32 PM Code Status & VTE Plan Code Status Full code VTE Prophylaxis Plan VTE Prophylaxis will be ordered: Yes PG Care Time/CCT Total # of Minutes Spent Total Time Spent with Patient: Total time spent is greater than 50% in coordination of care (as documented) at patient's floor/unit and/or counseling patient: Coding Level of Care Code 23120 INT INP/OBS CARE MIN Diagnoses Near syncope R55 TIA (transient ischemic attack) G45.9 ADDISON (acute kidney injury) N17.9 PVCs (premature ventricular contractions) I49.3
--- NOTE | 2025-09-03 22:33 | Magnetic Resonance Report ---
Exam(s): MRA HEAD Without Contrast EXAM: MR Angiography Head Without Intravenous Contrast CLINICAL HISTORY: Reason for exam: TIA. OTHER: Other Notes: dizzy episode today that last 30-40minutes other symptoms no head trauma dizziness has since resolved TECHNIQUE: Magnetic resonance angiography images of the head without intravenous contrast. COMPARISON: No relevant prior studies available. FINDINGS: Right internal carotid artery: No acute findings. Intracranial segment is patent with no significant stenosis. No aneurysm. Right anterior cerebral artery: Unremarkable. No occlusion or significant stenosis. No aneurysm. Right middle cerebral artery: Unremarkable. No occlusion or significant stenosis. No aneurysm. Right posterior cerebral artery: Unremarkable. No occlusion or significant stenosis. No aneurysm. Right vertebral artery: Unremarkable as visualized. Left internal carotid artery: No acute findings. Intracranial segment is patent with no significant stenosis. No aneurysm. Left anterior cerebral artery: Unremarkable. No occlusion or significant stenosis. No aneurysm. Left middle cerebral artery: Unremarkable. No occlusion or significant stenosis. No aneurysm. Left posterior cerebral artery: Unremarkable. No occlusion or significant stenosis. No aneurysm. Left vertebral artery: Unremarkable as visualized. Basilar artery: Unremarkable. No occlusion or significant stenosis. No aneurysm. IMPRESSION: Negative MRA of the brain. Electronically signed by: Brooklynn Montgomery MD 09/03/25 22:32 PM
--- NOTE | 2025-09-03 22:43 | Magnetic Resonance Report ---
Exam(s): MRI HEAD Without Contrast EXAM: MR Head Without Intravenous Contrast CLINICAL HISTORY: Reason for exam: TIA. OTHER: Other Notes: dizzy episode today that last 30-40minutes other symptoms no head trauma dizziness has since resolved TECHNIQUE: Magnetic resonance images of the head/brain without intravenous contrast in multiple planes. COMPARISON: Prior head CT from September 03, 2025. FINDINGS: Brain: Mild nonspecific white matter changes. The flow voids at the base the brain are intact. No mass. No hemorrhage. No acute infarct. Ventricles: Unremarkable. No ventriculomegaly. Bones/joints: Unremarkable. No acute fracture. Sinuses: Chronic ethmoid sinusitis. No acute sinusitis. Mastoid air cells: There is a small amount of fluid in the right mastoid air cells. No mastoid effusion. Orbits: Unremarkable as visualized. IMPRESSION: No evidence of acute intracranial pathology. Electronically signed by: Brooklynn Montgomery MD 09/03/25 22:42 PM
[2025-09-03] MEDS ORDERED: CARBOHYDRATES FOR HYPOGLYCEMIA PO PRN (23:04)
[2025-09-03] MEDS ORDERED: TIMOLOL MALEATE 0.5% OP SOLN 5 ML BTL OP SCH (23:04)
[2025-09-03] MEDS ORDERED: BRIMONIDINE TARTRATE 0.2% 5ML OP SCH (23:04)
[2025-09-03] MEDS ORDERED: GLUCAGON FOR INJ 1 MG VIAL SQ PRN (23:04)
[2025-09-03] MEDS ORDERED: ACETAMINOPHEN 325 MG TAB PO PRN (23:04)
[2025-09-03] MEDS ORDERED: GLUCOSE 10 TAB/TUBE PO PRN (23:04)
[2025-09-03] MEDS ORDERED: DEXTROSE 50% 50 ML SYRINGE IV PRN (23:04)
[2025-09-03] MEDS ORDERED: GLUCOSE 40% GEL 15 GM TUBE PO PRN (23:04)
--- NOTE | 2025-09-03 23:53 | Ultrasound Report ---
Exam(s): US CAROTID EXAM: US Duplex Bilateral Extracranial Arteries CLINICAL HISTORY: Reason for exam: TIA, ADDISON. OTHER: Other Notes: Near syncope. RT CCA 71/19, RT ICA 94/31, RT ECA 98, RT VERT 32 antegrade. LT CCA 83/19, LT ICA 95/22, LT ECA 144, LT VERT 53 antegrade. TECHNIQUE: Real-time duplex ultrasound scan of the extracranial arteries integrating B-mode two-dimensional vascular structure, Doppler spectral analysis and color flow Doppler imaging. COMPARISON: No relevant prior studies available. FINDINGS: Right common carotid artery: Unremarkable. No occlusion or significant stenosis on color flow and spectral Doppler imaging. Right internal carotid artery: Unremarkable. No occlusion or significant stenosis on color flow and spectral Doppler imaging. Right external carotid artery: Unremarkable. No occlusion or significant stenosis on color flow and spectral Doppler imaging. Right vertebral artery: Unremarkable. Antegrade flow. Right ICA/CCA ratio: Unremarkable. Within normal limits. Left common carotid artery: Unremarkable. No occlusion or significant stenosis on color flow and spectral Doppler imaging. Left internal carotid artery: Unremarkable. No occlusion or significant stenosis on color flow and spectral Doppler imaging. Left external carotid artery: Unremarkable. No occlusion or significant stenosis on color flow and spectral Doppler imaging. Left vertebral artery: Unremarkable. Antegrade flow. Left ICA/CCA ratio: Unremarkable. Within normal limits. Lymph nodes: Unremarkable. No lymphadenopathy. CAROTID STENOSIS REFERENCE USING IAC CRITERIA: Mild - <50% stenosis. ICA PSV is less than 180 cm/s and plaque or intimal thickening is visible. Moderate - 50-69% stenosis. ICA PSV is 180 to 230 cm/s and plaque is visible. Severe - 70-94% stenosis. ICA PSV is more than 230 cm/s and visible plaque with lumen narrowing is seen. Near occlusion - 95-99% stenosis. ICA PSV is variable and significant plaque with luminal narrowing is seen. Occluded - 100% stenosis. No flow identified. IMPRESSION: No evidence of hemodynamically significant stenosis. Antegrade vertebral artery blood flow. If there is continued clinical concern, a CT angiogram of the neck may be of benefit for further evaluation. Electronically signed by: Brooklynn Montgomery MD 09/03/25 23:53 PM
[2025-09-04] MEDS: BRIMONIDINE TARTRATE/TIMOLOL OP SCH (00:01)
[2025-09-04] MEDS: HEPARIN SOD 5,000 UNIT/0.5 ML VIAL SQ SCH (00:02)
[2025-09-04] MEDS: ATORVASTATIN 20 MG TAB PO SCH (00:02)
[2025-09-04 06:21] LABS: Hematocrit (blood only) 41.7 % (42.0-52.0); Hemoglobin 13.7 g/dl (14.0-18.0); Immature Granulocytes # (auto) 0.02 K/uL (0.01-0.20); Immature Granulocytes % (auto) 0.4 %; Mean Corpuscular Hemoglobin 30.6 pg (25.0-34.0); Mean Corpuscular Volume 93.1 fL (80.0-100.0); Platelet Count 116 K/uL (130-400); RDW Standard Deviation 46.0 fL (36.4-46.3); Red Blood Count 4.48 M/uL (4.70-6.10); White Blood Count 5.38 K/ul (4.8-10.8)
[2025-09-04 06:45] LABS: Albumin Level 3.9 gm/dl (3.4-5.0); Anion Gap 5.0 (3-11); Blood Urea Nitrogen 27.0 mg/dl (6-23); Calcium 8.5 mg/dl (8.6-10.3); Carbon Dioxide 28.0 mmol/L (21-32); Chloride 107.0 mmol/L (98-107); Cholesterol 114.0 mg/dl (0-200); Creatinine Clr Calc Pharmacy 62.5 ml/min; Glucose 115.0 mg/dl (70-99(Fasting)); HDL Cholesterol 39.0 mg/dl; Magnesium 1.9 mg/dl (1.7-2.4); Potassium 3.9 mmol/L (3.5-5.1); Sodium 140.0 mmol/L (136-145); Triglycerides 71.0 mg/dl (0-150)
--- NOTE | 2025-09-04 07:21 | Hospitalist Progress Note ---
Date of Service September 04, 2025 Assessment & Plan (1) Near syncope: (2) TIA (transient ischemic attack): (3) ADDISON (acute kidney injury): (4) PVCs (premature ventricular contractions): Plan The patient is a 74-year-old male with past medical history including dyslipidemia, diabetes mellitus, elevated PSA, pulmonary nodule, glaucoma admitted to telemetry for serial cardiac enzymes, serial EKG's, cardiac rhythm monitoring and a 2-D echocardiogram with Dopplers. #Near syncope Differential including but not limited to: Cardiac rhythm abnormality, TIA/CVA, metabolic disturbance such as with glucose levels. CT scan of head without contrast showed mild chronic small vessel disease. EKG showed right bundle branch block with wide QRS rhythm. Heart monitor in the ED during my evaluation showed frequent asymptomatic PVCs. Head CT, MR, carotid dopplers, CTAB are negative for cause of near syncope. Dehydration associated acute kidney injury, adverse effect of tadalafil, adverse effect of brimidone- timolol ophthalmic drops, cardiac source with frequent PVCs noted on monitor, and EKG showing right bundle branch block and wide QRS rhythm. - Echocardiogram show EF of 55-60% with mild MR. No other deficits - Patient continues without focal deficits - Ordered stress echo for completeness #Acute kidney injury At admission, Cr 1.70, with baseline 1.18. Received normal saline 1 L fluid bolus from the ED Continued IV fluids with NSS at 125 mL/h x 1 L overnight Cr 1.07 this am- resolved #Prediabetes Baseline A1c is 6.2%. Pt controls BSG with diet and exercise. Follows with endocrine in outpatient. Less likely for hypoglycemia A1c is 6.6% Chronic conditions: Glaucoma- Continue brimonidine-timolol eyedrops for now. If patient developed significant bradycardia, may recommend to change eyedrops away from beta-shahid timolol. Hyperlipidemia- Continue atorvastatin Check a fasting lipid panel Hx of prostate cancer Tadalifil 5mg held Admission and Anticipated Discharge Date Admission Date: September 03, 2025 Subjective No acute events overnight. This morning, pt reports feeling well. Pt states prior to the event yesterday of unprovoked dizziness, pt had been noting progressive lightheaded/dizziness with walking up hill or running up stairs. Pt states he was diagnosed as prediabetes several years ago. He follows no carb diet and walks 3-4 miles per day for exercise. Pt does not take meds for BSG control. Pt denies any hx of cardiac pathology. Pt takes statin for HLD and tadalafil for hx of prostate cancer. Pt denies CP, SOB, abdominal pain, N/V/D/C, fever/chills, dysuria or new mylagias/arthralgias Review of Systems Review of Systems: As per HPI Physical Exam Physical Exam: Gen: NAD HENT: Normocephalic, atraumatic. External ear without deformities. Trachea midline, no thyromegaly Cardio: RRR, no murmurs or clicks. Tele shows sinus arrythmia with PVCs Resp: CTAB, Equal bilateral chest rise, no increased work of breathing GI: Non distended, soft, non tender, normoactive bowel sounds MSK: Moving all 4 extremities independently Skin: Dry, of normal skin tone, Neuro: A& O x 3, normal affect, no focal deficits Results & Data Results & Data Vital Signs (Past 12 Hours) Vital Signs Temp Pulse Pulse Resp BP Pulse Ox O2 Del Method 09/04/25 03:16 36.4 C L 55 L 17 104/55 L 94 Room Air 09/04/25 00:11 Room Air 09/04/25 00:11 Room Air 09/03/25 23:04 Room Air 09/03/25 23:00 36.4 C L 59 L 18 154/74 H 98 Room Air 09/03/25 22:57 Room Air 09/03/25 22:55 58 L 16 126/68 97 Room Air 09/03/25 20:54 65 09/03/25 20:30 60 16 140/76 100 Room Air
[2025-09-04 07:30] VITALS: RESP 18
[2025-09-04 08:06] LABS: Hemoglobin A1C 6.6 % (4.5-5.6)
[2025-09-04] MEDS: INSULIN ASPART PER UNIT CHARGE SC SCH (09:04)
[2025-09-04] MEDS: MULTIVITAMIN TAB PO SCH (09:06)
--- NOTE | 2025-09-04 09:26 | XCELERA ---
[id number] \\[id number]
[2025-09-04 11:16] VITALS: BP 129/65; TEMP 97.5; O2SAT 99
--- NOTE | 2025-09-04 11:16 | XCELERA ---
[id number] \\[id number]\[id number]
--- NOTE | 2025-09-04 12:44 | Discharge Summary ---
Date of Service September 04, 2025 Admission HPI Per Admitting Provider The patient is a 74-year-old male with past medical history including dyslipidemia, diabetes mellitus, elevated PSA, pulmonary nodule, glaucoma. Patient presents to the emergency department reporting that while he was at the [facility] had [place] earlier in the day today, he had an episode of feeling lightheaded dizzy and significant sweating after he had to change clothing. He reports that he did not eat breakfast this morning. He did eat at lunchtime, and reports that he felt better. He denies any headaches, focal weakness in arms or legs, chest pain or shortness of breath. He has no previous episodes of the symptoms. His blood sugar was checked while he was there reportedly was 220 and 140. When he got home, he called his PCPs office, and they told him that because the symptoms lasted 30 to 40 minutes, he should come to the emergency department to be evaluated for TIA. Workup in the emergency department included, chest x-ray, CT scan of head without contrast which showed mild chronic small vessel disease, CT scan of abdomen pelvis was negative. EKG showed right bundle branch block with wide QRS rhythm. Heart monitor in the ED during my evaluation showed frequent asymptomatic PVCs. Significant laboratory maladies included a creatinine of 1.70. From the ED patient received the following: Aspirin 324 mg, normal saline 1 L bolus, followed by normal saline at 125 mL/h. Patient was then referred for evaluation for admission to [facility] service. Principal Diagnosis Near syncope Discharge Exam Gen: NAD HENT: Normocephalic, atraumatic. External ear without deformities. Trachea midline, no thyromegaly Cardio: RRR, no murmurs or clicks. Tele shows sinus arrythmia with PVCs Resp: CTAB, Equal bilateral chest rise, no increased work of breathing GI: Non distended, soft, non tender, normoactive bowel sounds MSK: Moving all 4 extremities independently Skin: Dry, of normal skin tone, Neuro: A& O x 3, normal affect, no focal deficits Discharge Data Allergies Allergy/AdvReac Type Severity Reaction Status Date / Time No Known Allergies Allergy Verified 09/03/25 19:29 Consultations 09/03/25 19:15 ED Decision to Admit Stat Ordered Studies 09/03/25 16:26 CT head/brain wo con Stat 09/03/25 16:30 CT abd pelvis wo con Stat 09/03/25 20:38 Carotid duplex [US carotid doppler BI] Urgent MR angio head wo con Stat MRI Brain [MR brain wo con] Stat Hospital Course (1) Near syncope: (2) TIA (transient ischemic attack): (3) ADDISON (acute kidney injury): (4) PVCs (premature ventricular contractions): Plan The patient is a 74-year-old male with past medical history including dyslipidemia, diabetes mellitus, elevated PSA, pulmonary nodule, glaucoma admitted to telemetry for serial cardiac enzymes, serial EKG's, cardiac rhythm monitoring and a 2-D echocardiogram with Dopplers. Likely cause is dehydration. #Near syncope Differential including but not limited to: Cardiac rhythm abnormality, TIA/CVA, metabolic disturbance such as with glucose levels. CT scan of head without contrast showed mild chronic small vessel disease. EKG showed right bundle branch block with wide QRS rhythm. Heart monitor in the ED during my evaluation showed frequent asymptomatic PVCs. Head CT, MR, carotid dopplers, CTAB are negative for cause of near syncope. Dehydration associated acute kidney injury, adverse effect of tadalafil, adverse effect of brimidone- timolol ophthalmic drops, cardiac source with frequent PVCs noted on monitor, and EKG showing right bundle branch block and wide QRS rhythm. - Echocardiogram show EF of 55-60% with mild MR. No other deficits - Patient continues without focal deficits - Ordered stress echo for completeness- returned as normal #Acute kidney injury At admission, Cr 1.70, with baseline 1.18. Received normal saline 1 L fluid bolus from the ED Continued IV fluids with NSS at 125 mL/h x 1 L overnight Cr 1.07 this am- resolved #Prediabetes Baseline A1c is 6.2%. Pt controls BSG with diet and exercise. Follows with endocrine in outpatient. Less likely for hypoglycemia A1c is 6.6% Chronic conditions: Glaucoma- Continue brimonidine-timolol eyedrops for now. If patient developed significant bradycardia, may recommend to change eyedrops away from beta-shahid timolol. Hyperlipidemia- Continue atorvastatin Check a fasting lipid panel Hx of prostate cancer Tadalafil 5mg held- resume after hospital DC Total Time Total Time Spent Total Time Spent (In Minutes): <30 Discharge Plan Discharge Items Patient Disposition: Home - Self-Care Reason For Visit: NEAR SYNCOPE, PVC'S, RBBB Discharge Diagnosis: near syncope Condition on Discharge: Fair Activity: Resume your previous activity Non-emergency contact: Primary Care Provider Call non-emergency contact if: your symptoms worsen Follow-up/Referrals: Ashley Haddad [Primary Care Provider] - 09/18/25 2:25 pm (Primary Care hospital follow up scheduled on 09/18/25 at 2:[address] Acevedo) Diet: Carb Consistent or DM2 and Heart Healthy Addtl Attending Provider Instructions: You were admitted for cardiac work up follow an episode of dizziness. The echocardiogram and stress test returned as normal and without finding suggestive of cardiac involvement in your dizziness. The likley cause of your dizziness is dehydration. Please remember to maintain good daily hydration with goal of drinking 60 oz of water daily. Limit your caffeine and soda intake. You may resume your home medications. Please follow up with your PCP in the next 7-10 days. Thank you for allowing us to be a part of your care team. Pending Studies at Discharge: No Stand-Alone Forms: My [facility], Smoking Cessation Medications and DC Order Prescriptions: Continued (DME) blood sugar diagnostic [OneTouch Ultra Blue Test Strip] Strip See Rx Instructions .ROUTE .MEDSUPPLY Qty: 100 3RF Rx Instructions: test blood sugars once daily (DME) FreeStyle Pat 3 Plus Sensor Device See Rx Instructions .Route Qty: 6 3RF Rx Instructions: Please change 15 days Combigan 0.2-0.5 % drops 1 drops OP BID tadalafil 5 mg tablet 5 mg PO DAILY atorvastatin 20 mg tablet 20 mg PO QPM Qty: 90 3RF multivitamin Tablet 1 tab PO DAILY Discharge Orders: Discharge Order (Routine); Ordered 09/04/25 Ordered By: Shoshana Shaffer/Other Patient Handouts: Managing Type 2 Diabetes, Dehydration Admission Data Admit Date/Time: 09/03/25 21:06 Attending Provider: Nicholas Jones Admit Provider: Jorge Myles Primary Care Provider: Ashley Haddad Other Providers: Jorge Myles Other Interventions: Discharge Summary Assessment (RN) Last Done: 09/04/25 13:20 Supervising Physician Co-Signing Physician Notes I personally examined the patient and verified all wells points of history and exam, discussed case, and agree with decision making with Dr Browning feeling good. Feels up to going home. Testing all very reassuring. Vitals n oted, in general he is awake and alert pleasant no distress. HEENT normocephalic atraumatic mucous membranes moist. Breathing unlabored no accessory muscle use good effort. Skin without rashes pallor or icterus. Neuro without focal deficits. Near syncope/diaphoresismost likely was from dehydration and/or poor p.o. intake induced hypoglycemia. Initially there was concern for stroke or cardiac diseasethis was all effectively ruled out by negative stroke workup, reassuring echo, reassuring stress echo. Discussed adequate p.o. nutrition and hydration intake. Patient expresses understanding. Safe/stable for home. Resident Activity Tracking Resident Involvement: Resident Care Provided Care Provided: Adult Hospital Medicine
[2025-09-04 13:21] VITALS: PULSE 55
--- NOTE | 2025-09-04 14:54 | Billing Data ---
Date of Service September 04, 2025 Coding Level of Care Code 42000 IN/OBS DISCH 30 MIN/LESS
--- NOTE | 2025-09-04 15:15 | Electrocardiogram Report ---
Test Reason : Blood Pressure : */* mmHG Vent. Rate : 62 BPM Atrial Rate : 62 BPM P-R Int : 136 ms QRS Dur : 128 ms QT Int : 430 ms P-R-T Axes : 1 -7 -11 degrees QTcB Int : 436 ms Sinus rhythm with Premature supraventricular complexes and with occasional Premature ventricular comp lexes Right bundle branch block Possible Inferior infarct , age undetermined Abnormal ECG When compared with ECG of 03-Sep-2025 15:35, Sinus rhythm has replaced Wide QRS rhythm Confirmed by Bradly Holman ([id number]) on 09/04/2025 3:15:35 PM Referred By: REFERRED SELF Confirmed By: Bradly Holman
--- NOTE | 2025-09-04 15:16 | Electrocardiogram Report ---
Test Reason : Blood Pressure : */* mmHG Vent. Rate : 57 BPM Atrial Rate : 57 BPM P-R Int : 158 ms QRS Dur : 146 ms QT Int : 474 ms P-R-T Axes : * -13 -7 degrees QTcB Int : 461 ms Sinus bradycardia with Premature supraventricular complexes Right bundle branch block Abnormal ECG When compared with ECG of 03-Sep-2025 16:44, (unconfirmed) Premature ventricular complexes are no longer Present Confirmed by Bradly Holman ([id number]) on 09/04/2025 3:16:02 PM Referred By: REFERRED SELF Confirmed By: Bradly Holman
== END 2025-09-04 13:55 | disposition home or self-care (01) ==
LOC: ED 15:12 → 2S 15:12 → SUATTDRO 21:06 → 2S 22:57